=== PATIENT | female | born 1990 | race Two or more races ===

== ENCOUNTER 2024-06-11 11:53 | Emergency (ER) | payer OTHER, SELFPAY ==
[2024-06-11 11:57] VITALS: BP 134/83; PULSE 64; TEMP 36.9; O2SAT 97; BMI 22.3
[2024-06-11] MEDS: IBUPROFEN 600 MG TABLET PO (13:34)
[2024-06-11] MEDS: DEXAMETHASONE SOD PHOS 10 MG/ML VIAL IM (13:34)
--- NOTE | 2024-06-11 13:34 | ED.URI1 ---
HPI - URI/Sore Throat General Chief Complaint: Upper Respiratory Infection Stated Complaint: FACIAL SWELLING/MOUTH PAIN Time Seen by Provider: 06/11/24 12:34 Source: patient and family () Limitations: no limitations History of Present Illness HPI Narrative: 33-year-old female presents to the emergency department with with complaint of sore throat. Onset this past Monday. Patient feels like it is sore to the back of her tongue, on either side of her neck. Describes as somewhat burning. Worsens when she swallows, takes a deep breath. Denies any known fevers. Has had a little postnasal drip. Denies any chest pain, cough, shortness of breath. Quality:?as above Severity:?moderate Timing:?as above, constant Context: Normal setting and activity? Modifying factors:?worse with swallowing Associated symptoms: as above Related Data Home Medications ?Medication ?Instructions ?Recorded ?Confirmed No Known Home Medications 06/11/24 06/11/24 Allergies Allergy/AdvReac Type Severity Reaction Status Date / Time No Known Drug Allergies Allergy Verified 06/11/24 12:02 Review of Systems ROS Narrative Constitutional: Denies fever, chills, fatigue HENT: + sore throat, diff swallowing due to pain. Denies ear pain, rhinorrhea, sneezing, voice change Eyes: Denies discharge, eye redness Respiratory: Denies cough, shortness of breath Cardiovascular: Denies chest pain, palpitations PFSH PFSH Social History Little interest or pleasure in doing things: not at all Feeling down, depressed, or hopeless: not at all Exam Narrative Exam Narrative: Vital signs noted Nurses notes reviewed CONST:? Nontoxic, well appearing, well nourished, in no distress.? HENT: normocephalic, atraumatic.? Normal hearing.? Normal appearing ext ears, canals, TM's.? No nasal discharge.? Moist mucous membranes, no edema, exudate.? + streaking noted to the posterior oropharynx. No trismus, maintaining own secretions. No uvular deviation or fullness noted. No hot potato voice EYES: No injection, discharge NECK: supple, no lymphadenopathy CV: normal rate, regular rhythm, no murmur RESP: normal effort, speaking in complete sentences. Lung sounds clear and equal bilat.? No wheezes, rales, rhonchi? NEURO: A&Ox3, steady gait, normal station SKIN: intact, warm, dry, no pallor PSYCHIATRIC: normal mood, affect Constitutional Vital Signs, click to edit/add: Last Vital Signs Temp 98.4 F 06/11/24 11:57 Pulse 64 06/11/24 11:57 Resp 20 06/11/24 11:57 BP 134/83 06/11/24 11:57 Pulse Ox 97 06/11/24 11:57 O2 Del Method Room Air 06/11/24 11:57 Course Reevaluation(s) Reevaluation #1: On reevaluation, patient reports overall improvement of her symptoms. Discussed with patient and results, plan, and disposition. They are agreeable with plan Time: 14:15 Vital Signs Vital signs: Vital Signs Temperature 98.4 F 06/11/24 11:57 Pulse Rate 64 06/11/24 11:57 Respiratory Rate 20 06/11/24 11:57 Blood Pressure 134/83 06/11/24 11:57 Pulse Oximetry 97 06/11/24 11:57 Oxygen Delivery Method Room Air 06/11/24 11:57 Temperature 98.4 F 06/11/24 11:57 Pulse Rate 64 06/11/24 11:57 Respiratory Rate 20 06/11/24 11:57 Blood Pressure 134/83 06/11/24 11:57 Pulse Oximetry 97 06/11/24 11:57 Oxygen Delivery Method Room Air 06/11/24 11:57 MDM - URI/Sore Throat MDM Narrative Medical decision making narrative: This is a pleasant 33-year-old female who presents to the emergency department with her with complaint of sore throat since this past Monday. Has had a little postnasal drip. Denies any known fevers, cough, chest pain, shortness of breath. On arrival, afebrile, stable. Exam, nontoxic, well-appearing patient in no distress. Ears were clear. She has some red streaking noted to the posterior oropharynx. No edema to the tonsils, exudate, uvular deviation or fullness that might suggest peritonsillar abscess. She displays no hot potato voice. Neck is supple, no rigidity. Heart regular rate and rhythm. Lung sounds clear and equal bilaterally. COVID, RSV, influenza screens were negative Strep screen was negative Patient was given Motrin, Decadron, and a lozenge with overall improvement of her symptoms. History and record review Discussion with independent historian: Favor viral pharyngitis Strep, COVID, influenza less likely based on lab testing Peritonsillar abscess less likely based on history and physical exam Reevaluation: Clinically improved and feeling better Disposition ? The patient was discharged. Plan: Patient will be discharged to home. Condition at time of disposition: stable Patient advised supportive care including Motrin, sore throat lozenges Advised to follow up with primary provider. Advised to return for any worsening and/or development of new, concerning signs or symptoms PLEASE NOTE: Portions of the medical record may have been produced using electronic time clock inspector and may contain errors with respect to translation of words which may not have been identified prior to finalization of the chart. Medical Records Attestation: I reviewed the patient's medical records. Lab Data Attestation: I reviewed the patient's lab results. Labs: Lab Results 06/11/24 Range/Units 13:25 Influenza Type A Ag Negative Influenza Type B Ag Negative RSV Antigen Not detected (NOT DETECTE) SARS-CoV-2 Ag (CV2AG) Negative (NEGATIVE) Streptococcus Screen Negative Discharge Plan Discharge Chief Complaint: Upper Respiratory Infection Clinical Impression: Viral infection Pharyngitis Qualifiers: Pharyngitis/tonsillitis etiology: unspecified etiology Qualified Code(s): J02.9 - Acute pharyngitis, unspecified Patient Disposition: Home, Self-Care Time of Disposition Decision: 14:16 Condition: Good Mode of Transportation: Private Vehicle Prescriptions / Home Meds: No Action No Known Home Medications Print Language: Citizen Of [place] Instructions: Pharyngitis (ED) Additional Instructions: Obtain sore throat lozenges from the store, use as directed. Take 600 mg of Motrin every 8 hours for fever, pain. Referrals: Param Becker MD [Physician] - 1 week Discharge Date/Time: 06/11/24 14:36
[2024-06-11] MEDS: BENZOCAINE/MENTHOL SORE THROAT LOZENGE 1 LOZENGE MM (13:40)
[2024-06-11 13:52] LABS: Influenza Virus A Antigen Negative; Influenza Virus B Antigen Negative; Internal Control Within Normal Limits; Respiratory Syncytial Virus Not Detected (NOT DETECTE); SARS-CoV-2 Ag NEGATIVE (NEGATIVE); Strep A Antigen Screen Negative
== END 2024-06-11 14:36 | disposition home or self-care (01) ==
PROVIDERS: Physician Assistant; Emergency Provider Student in an Organized Health Care Education/Training Program
DX: J02.9 Acute pharyngitis, unspecified (principal); Z20.822 Contact with and (suspected) exposure to COVID-19
CPT/HCPCS: 87070; 87420; 87804; 87811; 87880; 96372; 99284; J1100

== ENCOUNTER 2024-06-13 09:43 | Emergency (ER) | payer OTHER, SELFPAY ==
[2024-06-13 10:00] VITALS: BP 121/68; PULSE 69; TEMP 36.5; O2SAT 98; BMI 22.3
--- NOTE | 2024-06-13 10:11 | ED_ITS ---
HPI HPI - General Adult General Chief complaint: Upper Respiratory Infection Stated complaint: MOUTH SWELLING, SOB Time Seen by Provider: 06/13/24 10:10 Source: patient Mode of arrival: walk-in History of Present Illness HPI narrative: The patient presented to us 2 days after she was already evaluated for similar complaint, the patient presented to us after her sore throat got worse she mentioned that she wake up at night sometimes with shortness of breath, she also is complaining of pain whenever she protrude her tongue No hoarseness of voice no fever no chills that is recorded, there is decreased p.o. intake and no nausea at the moment although the patient had 1 episode of vomiting but she mentioned that she also had a lot of acid reflux Related Data Home Medications ?Medication ?Instructions ?Recorded ?Confirmed ibuprofen 600 mg tablet 600 mg PO Q8H PRN pain 06/13/24 06/13/24 Previous Rx's ?Medication ?Instructions ?Recorded amoxicillin 875 mg-potassium 1 tab PO Q12H #14 tabs 06/13/24 clavulanate 125 mg tablet famotidine 20 mg tablet (Pepcid) 20 mg PO BID #14 tabs 06/13/24 Allergies Allergy/AdvReac Type Severity Reaction Status Date / Time No Known Drug Allergies Allergy Verified 06/11/24 12:02 Opioid HPI Opioid Management Most Recent Opioid Data: Last Pain Scale 4 06/11/24 13:34 06/11/24 Review of Systems ROS Status of ROS 10 or more systems reviewed and unremark able except as noted in history and below PFSH PFSH Social History Little interest or pleasure in doing things: not at all Feeling down, depressed, or hopeless: not at all Exam Narrative Exam Narrative: Nurses notes and vital signs reviewed and patient is not hypoxic. Ear nose and throat examination showed that the patient have enlarged tonsils with airway that is not compromised and it is very patent, there is a no deviation of the uvula it is in the midline, the patient have a white spot on the left tonsil with anterior cervical lymphadenopathy noted General: Well-appearing and in no apparent distress. Skin: Warm, dry, no pallor noted. No rash. Head: Normocephalic, atraumatic. Cardiovascular: Regular Rate and Rhythm without murmur, gallop or rub. Respiratory: No accessory muscle use or respiratory distress. Lungs are clear to auscultation, no wheezing, rales or rhonchi Chest Wall: no tenderness Back: No midline thoracic or lumbar vertebral tenderness. No CVA tenderness Musculoskeletal: normal ROM, no calf or popliteal tenderness, no lower extremity edema/swelling GI: Abdomen is soft, non-distended. Normal bowel sounds. No masses appreciated. No tenderness to palpation. No rebound, guarding, or rigidity noted. Neurological: A&O x4. No cranial nerve dysfunction observed. No truncal ataxia. Moves all extremities. Sensation intact. Psychiatric: Cooperative and interactive. Normal mood and affect. Constitutional Vital Signs, click to edit/add: Last Vital Signs Temp 97.7 F 06/13/24 10:00 Pulse 69 06/13/24 10:00 Resp 18 06/13/24 10:00 BP 121/68 06/13/24 10:00 Pulse Ox 98 06/13/24 10:00 O2 Del Method Room Air 06/13/24 10:00 Course Vital Signs Vital signs: Vital Signs Temperature 97.7 F 06/13/24 10:00 Pulse Rate 69 06/13/24 10:00 Respiratory Rate 18 06/13/24 10:00 Blood Pressure 121/68 06/13/24 10:00 Pulse Oximetry 98 06/13/24 10:00 Oxygen Delivery Method Room Air 06/13/24 10:00 Temperature 97.7 F 06/13/24 10:00 Pulse Rate 69 06/13/24 10:00 Respiratory Rate 18 06/13/24 10:00 Blood Pressure 121/68 06/13/24 10:00 Pulse Oximetry 98 06/13/24 10:00 Oxygen Delivery Method Room Air 06/13/24 10:00 Medical Decision Making [facility] Narrative Medical decision making narrative: Right now the patient presentation and the fact that she have increase in her tonsil size in addition to white tonsils spot and exudate that has not a finding that was there 2 days ago the patient ready had a culture sent for strep after the negative strep test but she will be treated due to her clinical evaluation that is significant for possible tonsillitis mostly secondary to bacterial infection The patient is to follow up with primary care physician in next 2-3 days or to return to the emergency department should any of the signs or symptoms worsen or new symptoms develop. The patient agrees with the following Diagnosis and Treatment plan and the patient will be discharged home. Discharge Plan Discharge Chief Complaint: Upper Respiratory Infection Clinical Impression: Acute tonsillitis Patient Disposition: Home, Self-Care Time of Disposition Decision: 10:32 Condition: Good Prescriptions / Home Meds: New famotidine [Pepcid] 20 mg tablet 20 mg PO BID Qty: 14 0RF amoxicillin-pot clavulanate 875-125 mg tablet 1 tab PO Q12H Qty: 14 0RF No Action ibuprofen 600 mg tablet 600 mg PO Q8H PRN (Reason: pain) Print Language: Spanish Instructions: Laryngitis (ED), Tonsillitis (ED) Referrals: Physician,Non-Staff, MD [Primary Care Provider] - 1 week Discharge Date/Time: 06/13/24 10:42
== END 2024-06-13 10:42 | disposition home or self-care (01) ==
PROVIDERS: Emergency Provider Emergency Medicine
DX: J03.90 Acute tonsillitis, unspecified (principal)
CPT/HCPCS: 99283